=== PATIENT | male | born 1970 | race Hispanic/Latino ===

== ENCOUNTER 2018-02-09 22:19 | Emergency (ER) | payer BC ==
[~2018-02-09 22:19] MED LIST: ASPI-1012 PO; HYDR-4457 PO
[2018-02-09 22:59] LABS: BASOPHILS % (AUTO) 0.5 % (0.0-5.0); EOSINOPHILS % (AUTO) 0.8 % (0.0-8.0); HEMATOCRIT 30.4 % (42-54); LYMPHOCYTES % (AUTO) 29.4 % (21.0-51.0); MEAN CORPUSCULAR HEMOGLOBIN 31.1 pg (27.0-33.0); MEAN CORPUSCULAR HGB CONC 35.7 g/dL (32.0-36.0); MEAN CORPUSCULAR VOLUME 87.1 fL (79-99); NEUTROPHILS % (AUTO) 60.3 % (40.0-77.0); PLATELET COUNT (AUTO) 358 K/uL (130-400); RED BLOOD CELL COUNT(AUTO) 3.49 MIL/uL (4.50-6.20); WHITE BLOOD COUNT (AUTO) 10.7 K/uL (4.8-10.8)
[2018-02-09 23:06] LABS: CREATININE 0.7 mg/dL (0.5-1.5); POTASSIUM 4.2 mmol/L (3.5-5.1)
[2018-02-09] MEDS ORDERED: CEFTRIAXONE SODIUM 1 GM ONE (23:42)
== END 2018-02-10 00:57 | disposition home or self-care (01) ==
LOC: EDH 22:19
DX: L03.116 Cellulitis of left lower limb (principal); Z98.890 Other specified postprocedural states; Z79.899 Other long term (current) drug therapy; Z87.891 Personal history of nicotine dependence
CPT/HCPCS: 36415; 80048; 85025; 93971; 96374; 99285; J0696

== ENCOUNTER 2018-10-22 10:30 | Inpatient (IN) | payer BC ==
[~2018-10-22] VITALS: Ht 162.6 cm; Wt 117.5 kg
[~2018-10-22 10:30] MED LIST changes: +DOXY100T19 PO
[2018-10-22 16:52] VITALS: BP 143/67
[2018-10-22 17:20] LABS: HEMATOCRIT 29.5 % (42-54); MEAN CORPUSCULAR HEMOGLOBIN 29.9 pg (27.0-33.0); MEAN CORPUSCULAR HGB CONC 34.8 g/dL (32.0-36.0); MEAN CORPUSCULAR VOLUME 85.9 fL (79-99); NUCLEATED RED BLOOD CELLS 0.1 % (0.0-0.19); PLATELET COUNT (AUTO) 213 K/uL (130-400); RED BLOOD CELL COUNT(AUTO) 3.44 MIL/uL (4.50-6.20); RED CELL DISTRIBUTION WIDTH 14.2 % (11.0-15.5); WHITE BLOOD COUNT (AUTO) 2.5 K/uL (4.8-10.8)
[2018-10-22 17:26] LABS: CREATININE 0.8 mg/dL (0.5-1.5); POTASSIUM 4.2 mmol/L (3.5-5.1)
[2018-10-22 19:19] LABS: BASOPHILS % (MANUAL) 4 % (0-2); LYMPHOCYTES % (MANUAL) 44 % (22-44); MONOCYTES % (MANUAL) 20 % (2-9); PLATELET MORPHOLOGY COMMENT ADEQUATE; REACTIVE LYMPHOCYTES 12 % (0-0); SEGMENTED NEUTROPHILS % 20 % (40-70)
[2018-10-22 19:44] VITALS: BP 146/66
[2018-10-22 19:54] LABS: PARTIAL THROMBOPLASTIN TIME 28.2 SEC (26.3-35.5); PROTHROMBIN TIME 10.5 SEC (9.6-11.6)
[2018-10-22] MEDS ORDERED: MEROPENEM 1 GM VIAL IV SCH (20:00)
[2018-10-22] MEDS ORDERED: FERR325T22 PO (20:06)
[2018-10-22] MEDS ORDERED: PREG50 PO (20:06)
[2018-10-22] MEDS ORDERED: LACT10SO9 PO (20:06)
[2018-10-22] MEDS ORDERED: ENOX40DI9 SQ (20:06)
[2018-10-22] MEDS ORDERED: CALC-15 PO (20:06)
[2018-10-22] MEDS ORDERED: FAMO20TA8 PO (20:06)
[2018-10-22] MEDS ORDERED: TAMS-1 PO (20:06)
[2018-10-22] MEDS ORDERED: ACET325T51 PO (20:06)
[2018-10-22] MEDS ORDERED: GUAI5SYR PO (20:06)
[2018-10-22] MEDS ORDERED: VANC1IVPB IV (20:06)
[2018-10-22] MEDS ORDERED: MERO1VIA IV (20:06)
[2018-10-22] MEDS ORDERED: CELE-84 PO (20:06)
[2018-10-22] MEDS ORDERED: ACETAMINOPHEN 325 MG TAB PO PRN (20:15)
[2018-10-22] MEDS ORDERED: VANCOMYCIN 1GM+NS 250ML IV SCH (20:15)
[2018-10-22] MEDS ORDERED: SODIUM CHLORIDE 0.9% 1000ML 1,000 ML IV SCH (20:15)
[2018-10-22] MEDS ORDERED: LACTULOSE 20 GM/30 ML UDCUP PO PRN (20:15)
[2018-10-22] MEDS ORDERED: CALCIUM CARBONATE 500 MG TABLET PO PRN (20:15)
[2018-10-22] MEDS ORDERED: HYDROCODONE/ACETAMINOPHEN 5/325 MG TAB PO PRN (20:15)
[2018-10-22] MEDS ORDERED: GUAIFENESIN-DM 200/20 MG 10 ML PO PRN (20:15)
[2018-10-22] MEDS ORDERED: COMPOUND IV REFRIGERATED 1 EACH IVSOLN MISC PRN (20:45)
[2018-10-22] MEDS: CELECOXIB 200 MG CAP PO SCH (20:51)
[2018-10-22] MEDS: PREGABALIN 25 MG CAP PO SCH (20:51)
[2018-10-22] MEDS ORDERED: VANCOMYCIN 2 GM in SODIUM CHLORIDE 0.9% 500ML 500 ML IV SCH (21:00)
[2018-10-22 23:12] LABS: APPEARANCE,URINE Clear (CLEAR); BILIRUBIN,URINE Negative (NEGATIVE); COLOR,URINE Yellow (YELLOW); GLUCOSE, URINE (UA) Negative (NEGATIVE); KETONES,URINE Negative (NEGATIVE); LEUKOCYTE ESTERASE ,URINE Negative (NEGATIVE); NITRATE,URINE Negative (NEGATIVE); OCCULT BLOOD,URINE Negative (NEGATIVE); PROTEIN,URINE Negative (NEGATIVE); UROBILINOGEN,URINE 0.2 mg/dL (0.2-1.0)
[2018-10-22 23:27] VITALS: BP 150/89
[2018-10-23 04:00] VITALS: BP 150/91
[2018-10-23 05:39] LABS: HEMATOCRIT 29.6 % (42-54); MEAN CORPUSCULAR HEMOGLOBIN 30.7 pg (27.0-33.0); MEAN CORPUSCULAR HGB CONC 35.8 g/dL (32.0-36.0); MEAN CORPUSCULAR VOLUME 85.8 fL (79-99); NUCLEATED RED BLOOD CELLS 0.2 % (0.0-0.19); PLATELET COUNT (AUTO) 204 K/uL (130-400); RED BLOOD CELL COUNT(AUTO) 3.45 MIL/uL (4.50-6.20); WHITE BLOOD COUNT (AUTO) 2.3 K/uL (4.8-10.8)
[2018-10-23 05:44] LABS: CREATININE 0.8 mg/dL (0.5-1.5); POTASSIUM 3.9 mmol/L (3.5-5.1)
[2018-10-23 05:50] LABS: INR 0.99 (0.85-1.15); PROTHROMBIN TIME 10.4 SEC (9.6-11.6)
[2018-10-23 07:41] VITALS: BP 151/71
[2018-10-23 09:29] LABS: BASOPHILS % (AUTO) 0.5 % (0.0-5.0); EOSINOPHILS % (AUTO) 1.3 % (0.0-8.0); MONOCYTES % (AUTO) 31.2 % (3.0-13.0)
[2018-10-23] MEDS: PREGABALIN 25 MG CAP PO SCH ×2 (09:41→20:20)
[2018-10-23] MEDS: CELECOXIB 200 MG CAP PO SCH ×2 (09:41→20:20)
[2018-10-23] MEDS: FERROUS SULFATE 325 MG TABLET.DR PO SCH (09:41)
[2018-10-23] MEDS: TAMSULOSIN HCL 0.4 MG CAP.ER.24H PO SCH (09:41)
[2018-10-23] MEDS: FAMOTIDINE 20MG TAB 20 MG TAB PO SCH (09:41)
--- NOTE | 2018-10-23 11:00 | NUR ---
DR. WATKINS CONSULT CALLED SPOKE WITH BRITTANEY AT DR. HEWITT OFFICE, WILL PASS MESSAGE ALONG FOR NEW CONSULT REGARDING NEUTROPENIA PLACED BY DR. MANNING.
--- NOTE | 2018-10-23 11:30 | NUR ---
INITIAL MET WPT AND SPOUSE- AND FMAILY AT [facility]- PREIVOUSLY LIVING AT [facility] FOR 4 WEEKS BC HIS TKA GOT INFECTED AND HAD TO BE REMOVED. PLAN FOR SURGERY TODAY- DELAYED SECOND TO LOW WBS, [place]COLOY AND ID CONSULT PENDING TODAY Addendum: 10/24/18 at 194 by DAI QUINTANA RN CM Amended: Links added.
[2018-10-23 11:31] VITALS: BP 148/67
[2018-10-23] MEDS: TBO-FILGRASTIM 480 MCG/0.8 ML ML SQ SCH (14:39)
[2018-10-23 16:41] VITALS: BP 146/76
--- NOTE | 2018-10-23 17:00 | NUR ---
PICC LINE REMOVED PICC LINE REMOVED ORDERED, PICC TIP INTACT. PRESSURE HELD TO RIGHT UPPER ARM FOR 5 MINUTES. PT TOLERATED REMOVAL WELL, WILL CONTINUE TO MONITOR PT CLOSELY.
[2018-10-23 19:00] VITALS: BP 146/93
[2018-10-23 23:22] VITALS: BP 155/93
[2018-10-24 03:00] VITALS: BP 127/67
[2018-10-24 04:50] LABS: HEMATOCRIT 29.7 % (42-54); MEAN CORPUSCULAR HEMOGLOBIN 29.5 pg (27.0-33.0); MEAN CORPUSCULAR HGB CONC 34.6 g/dL (32.0-36.0); MEAN CORPUSCULAR VOLUME 85.4 fL (79-99); NUCLEATED RED BLOOD CELLS 0.1 % (0.0-0.19); PLATELET COUNT (AUTO) 217 K/uL (130-400); RED BLOOD CELL COUNT(AUTO) 3.48 MIL/uL (4.50-6.20); RED CELL DISTRIBUTION WIDTH 14.9 % (11.0-15.5); WHITE BLOOD COUNT (AUTO) 13.6 K/uL (4.8-10.8)
[2018-10-24 06:05] LABS: BAND NEUTROPHILS % (MANUAL) 42 % (0-2); BASOPHILS % (MANUAL) 1 % (0-2); EOSINOPHILS % (MANUAL) 1 % (1-6); LYMPHOCYTES % (MANUAL) 22 % (22-44); METAMYELOCYTES % 5 % (0-0); MONOCYTES % (MANUAL) 10 % (2-9); REACTIVE LYMPHOCYTES 1 % (0-0); SEGMENTED NEUTROPHILS % 18 % (40-70)
[2018-10-24 06:06] LABS: MAN.DIFF COMMENT-IMPRESSION MANUAL DIFFERENTIAL; PLATELET MORPHOLOGY COMMENT ADEQUATE
[2018-10-24 07:33] VITALS: BP 139/70
[2018-10-24] MEDS ORDERED: HYDR-2132 PO (08:31)
[2018-10-24] MEDS ORDERED: PREG25 PO (08:31)
[2018-10-24] MEDS: FERROUS SULFATE 325 MG TABLET.DR PO SCH (08:46)
[2018-10-24] MEDS: TAMSULOSIN HCL 0.4 MG CAP.ER.24H PO SCH (08:46)
[2018-10-24] MEDS: CELECOXIB 200 MG CAP PO SCH (08:46)
[2018-10-24] MEDS: FAMOTIDINE 20MG TAB 20 MG TAB PO SCH (08:47)
[2018-10-24] MEDS: PREGABALIN 25 MG CAP PO SCH (08:47)
[2018-10-24] MEDS: TBO-FILGRASTIM 480 MCG/0.8 ML ML SQ SCH (09:00)
--- NOTE | 2018-10-24 09:30 | NUR ---
WALKER NEEDED BY PT FOR DC GOT CALL FROM LORENZO AT [facility] THAT PT WOULD NEED A WALKER PRIOR TO DISCHARGE ADVISED DR. MANNING IN [facility]. DR MANNING WROTE SCRIPT; SCRIPT TO ARMIDA BORGES. Addendum: 10/24/18 at 1943 by DAI QUINTANA RN CM Amended: Links added.
== END 2018-10-24 13:06 | disposition home or self-care (01) | DRG 560 ==
LOC: 4AH 16:40
PROVIDERS: ADMIT Orthopaedic Surgery; ATTEND Orthopaedic Surgery
DX: T84.54XA Infection and inflammatory reaction due to internal left knee prosthesis, initial encounter (principal); Z68.41 Body mass index [BMI] 40.0-44.9, adult; D70.9 Neutropenia, unspecified; D64.9 Anemia, unspecified; Z96.653 Presence of artificial knee joint, bilateral; E11.9 Type 2 diabetes mellitus without complications; E66.9 Obesity, unspecified; F17.200 Nicotine dependence, unspecified, uncomplicated; M19.90 Unspecified osteoarthritis, unspecified site; Y83.1 Surgical operation with implant of artificial internal device as the cause of abnormal reaction of the patient, or of later complication, without mention of misadventure at the time of the procedure; Z83.3 Family history of diabetes mellitus
CPT/HCPCS: 36415; 80048; 81003; 85025; 85610; 85651; 85730; 86850; 86900; 86901; 86922; 87641; G0378; J2185; J3370; J7030; J7040

== ENCOUNTER 2018-11-01 08:17 | Inpatient (IN) | payer BC ==
[2018-11-01] VITALS (26 sets, daily range): BP systolic 128–166; BP diastolic 56–92
[~2018-11-01] VITALS: Ht 162.6 cm; Wt 117.9 kg
[~2018-11-01 08:17] MED LIST changes: +ACET325T51 PO; -ASPI-1012 PO; -DOXY100T19 PO; +HYDR-2132 PO; -HYDR-4457 PO; +PREG25 PO; +TAMS-1 PO
[2018-11-01 10:02] LABS: BASOPHILS % (AUTO) 0.8 % (0.0-5.0); EOSINOPHILS % (AUTO) 0.8 % (0.0-8.0); HEMATOCRIT 35.4 % (42-54); MEAN CORPUSCULAR HEMOGLOBIN 30.2 pg (27.0-33.0); MEAN CORPUSCULAR HGB CONC 34.6 g/dL (32.0-36.0); MEAN CORPUSCULAR VOLUME 87.5 fL (79-99); MONOCYTES % (AUTO) 9.7 % (3.0-13.0); NEUTROPHILS % (AUTO) 52.7 % (40.0-77.0); NUCLEATED RED BLOOD CELLS 0.1 % (0.0-0.19); PLATELET COUNT (AUTO) 248 K/uL (130-400); RED BLOOD CELL COUNT(AUTO) 4.05 MIL/uL (4.50-6.20); RED CELL DISTRIBUTION WIDTH 15.5 % (11.0-15.5); WHITE BLOOD COUNT (AUTO) 6.2 K/uL (4.8-10.8)
[2018-11-01] MEDS ORDERED: GABA600T10 PO (10:21)
[2018-11-01] MEDS ORDERED: CEFAZOLIN SODIUM 1 GM VIAL ONE ×2 (10:45→20:06)
[2018-11-01] MEDS ORDERED: LACTATED RINGERS 1000ML 1,000 ML IV ONE (10:45)
[2018-11-01] MEDS ORDERED: CEFAZOLIN 3GM /D5W 100ML 100 ML IV PRN (10:45)
--- NOTE | 2018-11-01 10:50 | NUR ---
POTENTIAL FOR INFECTION: SHAVED RIGHT KNEE/LEG PER ANGELICA SOLIZ FOLLOWED BY WIPING WITH ESMER: 2% ESMER CHLORHEXIDINE CLOTH PATIENTS PRE-OP SKIN PREP.
[2018-11-01] MEDS ORDERED: METOCLOPRAMIDE 10 MG/2 ML VIAL ONE (12:37)
[2018-11-01] MEDS ORDERED: ACETAMINOPHEN EXTRA STRENGTH 500 MG TABLET ONE (12:37)
[2018-11-01] MEDS ORDERED: CELECOXIB 200 MG CAP ONE (12:37)
[2018-11-01] MEDS ORDERED: KETOROLAC TROMETHAMINE 15MG/ML ONE (12:37)
[2018-11-01] MEDS ORDERED: OXYCODONE HCL 10 MG TAB.SR.12H PO ONE (12:38)
[2018-11-01] MEDS ORDERED: VANCOMYCIN HCL 1 GM VIAL ONE ×3 (13:02→15:38)
[2018-11-01] MEDS ORDERED: TRANEXAMIC ACID 1000MG/10ML IV ONE ×3 (13:02→17:27)
[2018-11-01] MEDS ORDERED: LIDOCAINE PF 2% 5ML ABBOJECT ONE (13:11)
[2018-11-01] MEDS ORDERED: PROPOFOL 10 MG/ML 20ML VIAL IV ONE ×3 (13:11→16:37)
[2018-11-01] MEDS ORDERED: ONDANSETRON HCL 4 MG/2 ML VIAL ONE (13:11)
[2018-11-01] MEDS ORDERED: DEXAMETHASONE SOD PHOSPHATE 10MG/ML 1ML VIAL ONE (13:11)
[2018-11-01] MEDS ORDERED: MIDAZOLAM HCL 1 MG/ML 2ML VIAL ONE (13:11)
[2018-11-01] MEDS ORDERED: ROCURONIUM 10MG/1ML SYR 10 MG/ML ML ONE (13:12)
[2018-11-01] MEDS ORDERED: FENTANYL CITRATE PF 50 MCG/1 ML 2ML VIAL ONE ×2 (13:12→14:43)
[2018-11-01] MEDS: CEFAZOLIN SODIUM 1 GM VIAL ONE ×2 (13:22→14:06)
--- NOTE | 2018-11-01 16:00 | NUR ---
INITIAL MET W PT, KNOWN TO THIS CM, REDO OF TKA; INDP W ADLS, USES WALKER AT HOME, SPOUSE DRIVES AT THIS TIME, DCP IS HOME WITH HOME HEALTH, ORDERS FOR SAME HH LAST EPISODE OF CARE- APC, CONSENT SIGNED AND REFERRAL FAXED Addendum: 11/03/18 at 1931 by DAI QUINTANA RN CM Amended: Links added.
[2018-11-01] MEDS ORDERED: TRAMADOL HCL 50 MG TABLET PO PRN (16:45)
[2018-11-01] MEDS ORDERED: TEMAZEPAM 15 MG CAPSULE PO PRN (16:45)
[2018-11-01] MEDS ORDERED: DiphenhydrAMINE HCL 50 MG/ML VIAL IVP PRN (16:45)
[2018-11-01] MEDS ORDERED: ONDANSETRON HCL 4 MG/2 ML VIAL IVP PRN (16:45)
[2018-11-01] MEDS ORDERED: FERROUS FUMARATE 324 MG TABLET PO PRN (16:45)
[2018-11-01] MEDS ORDERED: OXYCODONE HCL 5 MG TAB PO PRN (16:45)
[2018-11-01] MEDS ORDERED: LIDOCAINE HCL-MPF 1% 2ML VIAL IVP PRN (16:45)
[2018-11-01] MEDS ORDERED: KETOROLAC TROMETHAMINE 15MG/ML IV PRN (16:45)
[2018-11-01] MEDS ORDERED: POTASSIUM CHLORIDE 10% ELIXIR 20 MEQ/15 ML UDCUP PO PRN (16:45)
[2018-11-01] MEDS ORDERED: CALCIUM CARBONATE 500 MG TABLET PO PRN (16:45)
[2018-11-01] MEDS ORDERED: POTASSIUM CHLORIDE 20MEQ/100ML 100 ML IV PRN (16:45)
[2018-11-01] MEDS ORDERED: POTASSIUM CHLORIDE 20 MEQ ERTAB PO PRN (16:45)
[2018-11-01] MEDS ORDERED: HYDRALAZINE HCL 20 MG/ML VIAL ONE (17:48)
[2018-11-01] MEDS ORDERED: MEPERIDINE-PF 25 MG/ML SYG ONE (18:04)
[2018-11-01] MEDS: ACETAMINOPHEN EXTRA STRENGTH 500 MG TABLET PO SCH ×2 (18:35→23:55)
[2018-11-01] MEDS: SODIUM CHLORIDE 0.9% 1000ML 1,000 ML IV SCH (18:35)
[2018-11-01 19:24] LABS: APPEARANCE BODY FLUID BLOODY (CLEAR); SPECIMENTYPE,BODY FLUID SYNOVIAL
[2018-11-01 19:25] LABS: BODY FLUID WBC 37 /cu. mm.; COLOR,BODY FLUID ORANGE (LT YELLOW); TOTAL VOLUME,BODY FLUID 6 mL
[2018-11-01 19:26] LABS: BODY FLUID RBC 25200 /cu. mm.
[2018-11-01 19:44] LABS: BF BASOPHIL 1 %; BF EOSINOPHIL 3 %; BF LYMPHOCYTE 27 %; BF MONOCYTE 3 %
[2018-11-01] MEDS: ASPIRIN 325 MG TABLET PO SCH (20:09)
[2018-11-01] MEDS: CELECOXIB 200 MG CAP PO SCH (20:10)
[2018-11-01] MEDS: PREGABALIN 25 MG CAP PO SCH (20:10)
[2018-11-01] MEDS: FAMOTIDINE 20MG TAB 20 MG TAB PO SCH (20:10)
[2018-11-01] MEDS: CEFAZOLIN SODIUM 1 GM VIAL IVP SCH (22:49)
[2018-11-02 00:20] VITALS: BP 140/62
[2018-11-02] MEDS: OXYCODONE HCL 5 MG TAB PO PRN ×4 (02:28→23:20)
[2018-11-02] MEDS: SODIUM CHLORIDE 0.9% 1000ML 1,000 ML IV SCH ×3 (02:29→14:00)
[2018-11-02 04:00] VITALS: BP 124/60
[2018-11-02] MEDS: CEFAZOLIN SODIUM 1 GM VIAL IVP SCH (04:56)
[2018-11-02 06:08] LABS: HEMATOCRIT 26.7 % (42-54); MEAN CORPUSCULAR HEMOGLOBIN 30.9 pg (27.0-33.0); MEAN CORPUSCULAR HGB CONC 35.8 g/dL (32.0-36.0); MEAN CORPUSCULAR VOLUME 86.4 fL (79-99); PLATELET COUNT (AUTO) 244 K/uL (130-400); RED BLOOD CELL COUNT(AUTO) 3.09 MIL/uL (4.50-6.20); RED CELL DISTRIBUTION WIDTH 15.8 % (11.0-15.5)
[2018-11-02 06:13] LABS: POTASSIUM 4.1 mmol/L (3.5-5.1)
[2018-11-02 07:30] VITALS: BP 156/83
[2018-11-02] MEDS: PREGABALIN 25 MG CAP PO SCH ×2 (08:18→19:45)
[2018-11-02] MEDS: CELECOXIB 200 MG CAP PO SCH ×2 (08:18→19:45)
[2018-11-02] MEDS: ASPIRIN 325 MG TABLET PO SCH ×2 (08:18→19:45)
[2018-11-02] MEDS: TAMSULOSIN HCL 0.4 MG CAP.ER.24H PO SCH (08:18)
[2018-11-02] MEDS: POLYETHYLENE GLYCOL 3350 17 GM POWD.PACK PO SCH (08:19)
[2018-11-02] MEDS: FAMOTIDINE 20MG TAB 20 MG TAB PO SCH ×2 (08:19→19:45)
[2018-11-02] MEDS: ACETAMINOPHEN EXTRA STRENGTH 500 MG TABLET PO SCH ×3 (08:19→23:19)
[2018-11-02 11:10] VITALS: BP 150/67
[2018-11-02 16:00] VITALS: BP 137/83
[2018-11-02 20:00] VITALS: BP 135/77
[2018-11-03] VITALS: BP 126/72
[2018-11-03 03:30] VITALS: BP 129/83
[2018-11-03] MEDS: POLYETHYLENE GLYCOL 3350 17 GM POWD.PACK PO SCH (08:48)
[2018-11-03] MEDS: TAMSULOSIN HCL 0.4 MG CAP.ER.24H PO SCH (08:48)
[2018-11-03] MEDS: FAMOTIDINE 20MG TAB 20 MG TAB PO SCH (08:48)
[2018-11-03] MEDS: PREGABALIN 25 MG CAP PO SCH (08:48)
[2018-11-03] MEDS: ACETAMINOPHEN EXTRA STRENGTH 500 MG TABLET PO SCH ×2 (08:48→16:08)
[2018-11-03] MEDS: CELECOXIB 200 MG CAP PO SCH (08:48)
[2018-11-03] MEDS: OXYCODONE HCL 5 MG TAB PO PRN (08:48)
[2018-11-03] MEDS: ASPIRIN 325 MG TABLET PO SCH (08:48)
[2018-11-03 10:54] VITALS: BP 128/66
[2018-11-03] MEDS ORDERED: ASPI-1012 PO (12:00)
[2018-11-03] MEDS ORDERED: HYDR-4457 PO (12:00)
[2018-11-03] MEDS ORDERED: FERR324T PO (12:07)
--- NOTE | 2018-11-03 14:00 | NUR ---
Discharge instructions provided in the room, emphasis on Dr. Capellan' discharge orders for activity, physical therapy, incision care, and follow up treatment, as well as s/s to monitor for, and when to seek emergency care vs dial 911. Written rx for asa, ferrous gluconate, and [place] given to pt. Educated pt regarding purpose, route, frequency, and duration of treatment, as well as side effects and adverse effects. Pt has follow up appt with Dr. Capellan on 11/22 @ 3:00 pm.
--- NOTE | 2018-11-03 14:30 | NUR ---
Dressing change and drain removal to left knee. Left knee incision asymptomatic, well approximated with surgical glue. No active drainage. Painted with Betadine, and dressed with sterile 4x4's and Medipore tape. Removed drain, tip intact. Steady flow of dark, serosanguineous fluid. Pressure held for 2 minutes, but drainage continued. So pressure held to 5 minutes more, then additional 10 minutes. Drainage still continued, so bulky gauze and alba wrap applied using pressure. Call placed to Dr. Capellan to notify. No answer, message left on voicemail requesting call back.
--- NOTE | 2018-11-03 15:00 | NUR ---
Bleeding noted to alba wrap. Dressing changed and steri stip applied, then new pressure dressing by Delia Meza RN.
--- NOTE | 2018-11-03 15:00 | NUR ---
Rec'd notice from IR department that needle biopsy cannot be done due to high risk of seeding if mass is a sarcoma. Call placed to Dr. Cortez to notify, no answer. Message left requesting call back. Addendum: 11/03/18 at 1848 by MATTHEW CHOI RN RN DISREGARD ABOVE NOTE. ENTERED ON WRONG PT.
--- NOTE | 2018-11-03 15:30 | NUR ---
Rec'd call back from Dr. Capellan, notified of bleeding after drain removal. Rec'd order to hold discharge for 2 hours and if no further bleeding, pt may go home with pressure dressing in place and instruct pt not to remove until am dressing change. If bleeding continues, pt must stay overnight. Orders entered. Pt informed. No further bleeding at present.
--- NOTE | 2018-11-03 16:00 | NUR ---
NEW ORDER FOR 06/09 CHAIR CALL TO CM AT [facility] RE [facility] FOR RAPID SERVICE- [facility] IN [place]- VERBAL CONSENT ONBTAINED FROM PT AND SPOUSE- ORDER FROM , SENT TO [facility]- REP FROM [facility] TARIK CALLED BACK AND SAID THAT [facility] WOULD BE SENDING A CMS FORM FOR DR. MANNING TO SIGN- AND THAT THE PT COULD NOT GET THE 06/09 UNTIL THE FORM IS SIGNED . PT INFORMED AND AWARE OF THAT- STATES NO PROBLEM. Addendum: 11/03/18 at 1936 by DAI QUINTANA RN CM Amended: Links added.
[2018-11-03 16:14] VITALS: BP 133/68
--- NOTE | 2018-11-03 16:25 | NUR ---
Spoke with Dr. Cortez regarding IR recommendations for surgical biopsy instead of needle biopsy due to high risk of seeding. He stated needle biopsy is acceptable because mass is "already on the outside". Attempted to call IR department, no answer. Addendum: 11/03/18 at 1848 by MATTHEW CHOI RN RN DISREGARD ABOVE NOTE. ENTERED ON WRONG PT.
--- NOTE | 2018-11-03 17:30 | NUR ---
No further bleeding. Pt instructed to keep pressure dressing in place per Dr. Capellan' orders. Pt called for his ride.
--- NOTE | 2018-11-03 18:53 | NUR ---
PIV removed at time of discharge. Tip intact. Hemostasis achieved and dressed w sterile 2x2 and tape. Pt wheeled to [facility] for discharge home via private car. Pt in stable condition at time of discharge.
[2018-11-04] MEDS ORDERED: BISACODYL 10 MG SUPP.RECT RC PRN (16:45)
== END 2018-11-03 18:59 | disposition home health service (06) | DRG 468 ==
LOC: DAHIP 08:17 → 4AH 18:32
PROVIDERS: ADMIT Orthopaedic Surgery; ATTEND Orthopaedic Surgery
PROC: 0SPD0JZ Removal of Synthetic Substitute from Left Knee Joint, Open Approach (ICD-10-PCS; principal; 2018-11-01 13:06)
PROC: 0SRD0J9 Replacement of Left Knee Joint with Synthetic Substitute, Cemented, Open Approach (ICD-10-PCS; 2018-11-01 13:06)
PROC: 0SPD0EZ Removal of Articulating Spacer from Left Knee Joint, Open Approach (ICD-10-PCS; 2018-11-01 13:06)
DX: T84.54XA Infection and inflammatory reaction due to internal left knee prosthesis, initial encounter (principal); Z96.653 Presence of artificial knee joint, bilateral; Y83.1 Surgical operation with implant of artificial internal device as the cause of abnormal reaction of the patient, or of later complication, without mention of misadventure at the time of the procedure; Y92.89 Other specified places as the place of occurrence of the external cause; Z83.3 Family history of diabetes mellitus
CPT/HCPCS: 36415; 73562; 80048; 85025; 85027; 87070; 87076; 87205; 89051; 96374; 96375; 97039; C1776; G0378; J0360; J0690; J1100; J1885; J2001; J2175; J2250; J2405; J2704; J2765; J3010; J3370; J3490; J7030; J7120